=== PATIENT | female | born 1995 | race Caucasian/White ===

== ENCOUNTER 2016-09-10 11:08 | Emergency (ER) | payer MEDICAID ==
[~2016-09-10] VITALS: Ht 157.5 cm; Wt 57.6 kg
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
--- NOTE | 2016-09-10 11:43 | NUR ---
DR GAINES AT BEDSIDE FOR EVAL.
[2016-09-10] MEDS ORDERED: ONDANSETRON 4 MG TAB.RAPDIS SL ONE (12:00)
[2016-09-10] MEDS ORDERED: IBUPROFEN 400 MG TABLET PO ONE (12:00)
[2016-09-10] MEDS ORDERED: HYDROCODONE/APAP 10/325MG 1 EA TABLET PO ONE (12:00)
[2016-09-10] MEDS ORDERED: ONDANSETRON 4 MG TAB.RAPDIS ONE (12:01)
[2016-09-10] MEDS ORDERED: HYDROCODONE/APAP 10/325MG 1 EA TABLET ONE (12:01)
[2016-09-10] MEDS ORDERED: IBUPROFEN 400 MG TABLET ONE (12:01)
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
--- NOTE | 2016-09-10 13:10 | NUR ---
KNEE IMMOBILIZER APPLIED. Patient discharged to home in stable condition. Written and verbal after care instructions given. Patient verbalizes understanding of instruction.Crutches dispensed. Pt instructed on proper use of crutches. Patient able to demonstrate correct use of crutches.
[2016-09-10 13:12] VITALS: BP 115/68
== END 2016-09-10 13:13 | disposition home or self-care (01) ==
LOC: ER 11:10
DX: S83.095A Other dislocation of left patella, initial encounter (principal); S76.112A Strain of left quadriceps muscle, fascia and tendon, initial encounter; Z88.0 Allergy status to penicillin; W19.XXXA Unspecified fall, initial encounter; Y93.89 Activity, other specified; Y92.89 Other specified places as the place of occurrence of the external cause; Y99.8 Other external cause status
CPT/HCPCS: 29505; 73564; 99284; A4606; Q0162 ×2; Z7610